=== PATIENT | male | born 1990 ===

== ENCOUNTER 2021-07-29 20:14 | Emergency (ER) | payer SELFPAY ==
[~2021-07-29] VITALS: Ht 200.7 cm; Wt 85.5 kg
[2021-07-29] MEDS ORDERED: AMOXICILLIN 8751 TAB PO (20:36)
[2021-07-29 23:00] VITALS: BP 151/80; PULSE 110; TEMP 98.7
== END 2021-07-29 20:55 | disposition home or self-care (01) ==
LOC: COL.ER 20:14
DX: K05.20 Aggressive periodontitis, unspecified (principal); K02.9 Dental caries, unspecified

== ENCOUNTER 2021-08-03 20:25 | Emergency (ER) | payer SELFPAY ==
[~2021-08-03] VITALS: Ht 200.7 cm; Wt 84.7 kg
[~2021-08-03 20:25] MED LIST: AMOXICILLIN 8751 TAB PO
[2021-08-03] MEDS ORDERED: CLEOCIN HCL300 MG PO (22:59)
[2021-08-03 23:15] VITALS: BP 138/64; PULSE 66; TEMP 98
== END 2021-08-03 23:15 | disposition home or self-care (01) ==
LOC: COL.ER 20:25
DX: K08.89 Other specified disorders of teeth and supporting structures (principal); F17.200 Nicotine dependence, unspecified, uncomplicated

== ENCOUNTER 2021-08-07 02:06 | Emergency (ER) | payer SELFPAY ==
[~2021-08-07] VITALS: Ht 188 cm; Wt 74.5 kg
[~2021-08-07 02:06] MED LIST changes: +CLEOCIN HCL300 MG PO
[2021-08-07 02:54] VITALS: BP 136/93; PULSE 95; TEMP 98.4
== END 2021-08-07 02:54 | disposition home or self-care (01) ==
LOC: COL.ER 02:06
DX: K08.89 Other specified disorders of teeth and supporting structures (principal)